=== PATIENT | female | born 1955 | race Caucasian/White ===

== ENCOUNTER 2019-11-19 10:27 | Emergency (ER) | payer MEDICARE ==
--- NOTE | 2019-11-19 11:44 | EDM.PDOC ---
ED HPI GENERAL MEDICAL PROBLEM - General Chief Complaint: General Stated Complaint: SLOW HEART RATE, FATIGUE Time Seen by Provider: 11/19/19 11:25 Source of Information: Reports: Patient History Limitations: Reports: No Limitations - History of Present Illness INITIAL COMMENTS - FREE TEXT/NARRATIVE: 64-year-old female had what she claimed was a fast heart rate 5 nights ago, no chest pain or shortness of breath. Since that time she has felt fatigued, no energy, and is wondering if she has a tic disease. She did pull a tick off of her left shoulder a couple weeks ago but has had no rash or joint pain or fever. She does not think the tick was on her for more than a day or 2. Just generalized malaise and fatigue, no other complaints. She said she checked her blood pressure couple mornings ago and the bottom number was "143". On arrival she was placed on the court recording monitor, she is in normal sinus rhythm with a rate of 78, normal blood pressure, normal oxygen saturations and respirations. Onset: Unknown/Unsure Associated Symptoms: Reports: Malaise, Weakness, Other (Persistent fatigue). Denies: Confusion, Chest Pain, Cough, Diaphoresis, Fever/Chills - Related Data Allergies Allergy/AdvReac Type Severity Reaction Status Date / Time erythromycin base Allergy Hives Verified 11/19/19 11:22 [From Erythrocin] Penicillins Allergy Hives Verified 11/19/19 11:22 Sulfa (Sulfonamide Allergy Hives Verified 11/19/19 11:22 Antibiotics) Home Meds: Home Meds Aspirin 325 mg PO BID 11/19/19 [History] Past Medical History HEENT History: Reports: Impaired Vision Cardiovascular History: Reports: Afib, Other (See Below) Other Cardiovascular History: cardioversion Respiratory History: Reports: Bronchitis, Recurrent Gastrointestinal History: Reports: Cholelithiasis, Other (See Below) Other Gastrointestinal History: ulcer. polyps Genitourinary History: Reports: Renal Calculus Musculoskeletal History: Reports: Arthritis Psychiatric History: Reports: Anxiety Endocrine/Metabolic History: Reports: None - Past Surgical History Head Surgeries/Procedures: Reports: None HEENT Surgical History: Reports: Cataract Surgery Cardiovascular Surgical History: Reports: None Respiratory Surgical History: Reports: None GI Surgical History: Reports: Appendectomy Other GI Surgeries/Procedures: cysts on pancreas and liver/unchanged x 1 year Female Surgical History: Reports: None Endocrine Surgical History: Reports: None Musculoskeletal Surgical History: Reports: None Dermatological Surgical History: Reports: None Social & Family History - Tobacco Use Smoking Status *Q: Former Smoker Years of Tobacco use: 20 Packs/Tins Daily: 1 Used Tobacco, but Quit: Yes Month/Year Tobacco Last Used: 1999 - Caffeine Use Caffeine Use: Reports: Coffee, Tea - Recreational Drug Use Recreational Drug Use: No ED ROS GENERAL - Review of Systems Review Of Systems: See Below Constitutional: Reports: Malaise, Decreased Appetite. Denies: Fever, Chills HEENT: Reports: No Symptoms Respiratory: Denies: Shortness of Breath Cardiovascular: Reports: Palpitations (Patient experienced a "fast heart rate" on Saturday night). Denies: Chest Pain GI/Abdominal: Denies: Abdominal Pain, Nausea, Vomiting : Reports: No Symptoms Musculoskeletal: Reports: Other (Chronic generalized arthritis and muscle aches) Skin: Reports: No Symptoms Neurological: Reports: Dizziness, Weakness. Denies: Headache Psychiatric: Reports: No Symptoms ED EXAM, GENERAL - Physical Exam Exam: See Below Exam Limited By: No Limitations General Appearance: Alert, No Apparent Distress Eye Exam: Bilateral Eye: Normal Inspection Head: Atraumatic Respiratory/Chest: No Respiratory Distress, Lungs Clear Cardiovascular: Regular Rate, Rhythm. No: Extra Beats GI/Abdominal: Soft, Non-Tender Extremities: No: Pedal Edema Neurological: Alert, Oriented Psychiatric: Flat Affect Skin Exam: Warm, Dry Course - Vital Signs Last Recorded V/S: Last Vital Signs Temp 98.3 F 11/19/19 11:20 Pulse 71 11/19/19 11:20 Resp 15 11/19/19 11:20 BP 132/77 11/19/19 11:20 Pulse Ox 96 11/19/19 11:20 - Orders/Labs/Meds Labs: Laboratory Tests 11/19/19 11/19/19 11/19/19 Range/Units 11:58 11:58 11:58 WBC 5.3 (4.5-11.0) K/uL RBC 4.42 (3.30-5.50) M/uL Hgb 13.0 (12.0-15.0) g/dL Hct 40.4 (36.0-48.0) % MCV 91 (80-98) fL MCH 29 (27-31) pg MCHC 32 (32-36) % Plt Count 213 (150-400) K/uL Neut % (Auto) 71 H (36-66) % Lymph % (Auto) 18 L (24-44) % Hickman % (Auto) 7 H (2-6) % Eos % (Auto) 3 (2-4) % Baso % (Auto) 0 (0-1) % Sodium 142 (140-148) mmol/L Potassium 4.1 (3.6-5.2) mmol/L Chloride 105 (100-108) mmol/L Carbon Dioxide 29 (21-32) mmol/L Anion Gap 8.4 (5.0-14.0) mmol/L BUN 16 (7-18) mg/dL Creatinine 0.8 (0.6-1.0) mg/dL Est Cr Clr Drug Dosing 65.63 mL/min Estimated GFR (MDRD) > 60 (>60) Glucose 106 (74-106) mg/dL Calcium 8.8 (8.5-10.1) mg/dL Total Bilirubin 0.7 (0.2-1.0) mg/dL AST 17 (15-37) U/L ALT 32 (12-78) U/L Alkaline Phosphatase 70 (46-116) U/L Troponin I < 0.017 (0.000-0.056) ng/mL Total Protein 6.9 (6.4-8.2) g/dL Albumin 3.8 (3.4-5.0) g/dL Globulin 3.1 (2.3-3.5) g/dL Albumin/Globulin Ratio 1.2 (1.2-2.2) TSH, Ultra Sensitive 3.751 H (0.358-3.740) uIU/mL - Re-Assessments/Exams Free Text/Narrative Re-Assessment/Exam: 11/19/19 11:44 Patient will be kept on cardiac monitoring while we check a CBC, CMP, troponin and TSH. 11/19/19 12:56 Patient remained in a sinus rhythm throughout her ER stay with occasional PVCs but no other arrhythmia. All her labs are excellent and normal. She was reassured. I recommended she recheck with her regular provider to set up an event or Holter monitor. She will call the clinic to make an appointment. She can always return if her arrhythmias recur she can come in right away to see if we can get them diagnosed. Departure - Departure Time of Disposition: 13:23 Disposition: Home, Self-Care 01 Clinical Impression: Palpitations Fatigue Qualifiers: Fatigue type: unspecified Qualified Code(s): R53.83 - Other fatigue - Discharge Information Instructions: Fatigue Referrals: PCP,None [Primary Care Provider] - Forms: ED Department Discharge Care Plan Goals: Continue your current medications, increase activity as tolerated and stay hydrated. Recheck at the clinic to discuss cardiac monitoring or further work- up. Return anytime if palpitations recur and are persistent or you develop other concerns. Sepsis Event Note - Evaluation Sepsis Screening Result: No Definite Risk - Focused Exam Vital Signs: Vital Signs Temp Pulse Resp BP Pulse Ox 11/19/19 11:20 98.3 F 71 15 132/77 96 11/19/19 10:43 98.3 F 71 15 132/77 96 Date Exam was Performed: 11/19/19 Time Exam was Performed: 14:37
== END 2019-11-19 13:17 | disposition home or self-care (01) ==
LOC: JP.ED 10:27
DX: R53.83 Other fatigue (principal); R00.2 Palpitations; M19.90 Unspecified osteoarthritis, unspecified site; I48.91 Unspecified atrial fibrillation; Z88.1 Allergy status to other antibiotic agents; Z88.0 Allergy status to penicillin; Z88.2 Allergy status to sulfonamides; Z79.82 Long term (current) use of aspirin; Z87.891 Personal history of nicotine dependence
CPT/HCPCS: 36415; 80053; 84443; 84484; 85025; 99284

== ENCOUNTER 2024-05-01 09:00 | Day surgery (SDC) | payer MEDICARE ==
[~2024-05-01 09:00] MED LIST: Midazolam 1 MG/ML 2 ML SDV ONE; Propofol 200 MG/20 ML SDV ONE; fentaNYL 50 MCG/ML SDV ONE
[2024-05-01] MEDS: Lactated Ringers 1,000 ML IV SCH (10:02)
== END 2024-05-01 11:43 | disposition home or self-care (01) ==
LOC: JP.SDS 09:00
PROVIDERS: ATTEND Surgery
DX: Z12.11 Encounter for screening for malignant neoplasm of colon (principal); K63.5 Polyp of colon; G47.33 Obstructive sleep apnea (adult) (pediatric); E66.9 Obesity, unspecified
CPT/HCPCS: 00811; 45385; J2250; J2704; J3010; J7120; 88305